=== PATIENT | female | born 1975 | race Caucasian/White ===

== ENCOUNTER → 2016-12-18 | Day surgery (SDC) | payer OTHER ==
[~2016-12-18] VITALS: Ht 162.6 cm; Wt 86.6 kg
[~2016-12-18] MED LIST: CIPRO 500MG (E500 MG PO; PYRIDIUM100 MG PO
--- NOTE | 2016-12-18 13:26 | Operative Report ---
Operative/Inv Procedure Report Surgery Date: 12/18/16 Name of Procedure: Laparoscopic tubal sterilization Pre-Operative Diagnosis: Multiparity Post-Operative Diagnosis: Same Estimated Blood Loss: scant Surgeon/Package Lift Operator: JORDAN BARBOSA MD Anesthesia: general endotracheal tube Operative/Procedure Note Note: Seizure note patient was taken the operating room placed prone position after adequate anesthesia patient placed in dorsolithotomy position the vagina from dorsal fashion bladder was catheterized examination under anesthesia performed a single-tooth tenaculum was placed on the Intralipid surgeons down traction at this point the Eckert cannula was left in place surgery tolerated regowned and gloved at this at the level the umbilicus a stab incision was made to allow for the entry of Veress needle the abdomen was insufflated possibly fully Z CO2 to liver edge dullness which point the Veress needle was removed a 10 mm trocar was inserted atraumatically the umbilicus sheath remained placed through that sheath a laparoscope was placed under direct visualization a 5 mm port was placed 2 fingerbreadths of symptoms pubis in the midline patient tolerated that well at this point the right tube was picked up carried to its remained and end Marla 7 cm that tube starting at the isthmus was Bovie coagulated to the left tube was picked up carried to its fimbriated end possibly 7 cm that tube was Bovie coagulated starting the isthmus hemostasis was apparent maximal CO2 was removed from the abdomen once was removed from the abdomen after pictures were taken under direct visualization the incision at the umbilicus was oversewn for the fascia with 0 both incisions received interrupted sutures of 3 all Marcaine was injected in both sitting incisions on bacitracin was applied to the incisions patient tolerated that well the on at the end the case Eckert cannula was moved tip intact the William was removed patient was returned spine position awakened from anesthesia and transferred recovery room awake and alert with counts correct Findings: Tubes and ovaries bilaterally slightly enlarged uterus adherent from the large colon over the left tube was normal anatomy
== END ==
LOC: STS 01:51
DX: Z30.2 Encounter for sterilization (principal); R56.9 Unspecified convulsions; F17.200 Nicotine dependence, unspecified, uncomplicated; E66.9 Obesity, unspecified
CPT/HCPCS: 81025; J0131; J1580; J2250